=== PATIENT | female | born 1970 | race Caucasian/White ===

== ENCOUNTER 2021-03-27 14:01 | Inpatient (IN) | payer MEDICAID ==
[2021-03-27 15:18] LABS: CHLORIDE,CL 97 mEq/L (98-106); SODIUM,NA 136 mEq/L (136-145)
[2021-03-27] MEDS ORDERED: Ondansetron 4 MG/2 ML SDV IV PRN (17:15)
[2021-03-27] MEDS ORDERED: Sodium Chloride 0.9% 10 ML Syringe FLUSH PRN (17:15)
[2021-03-27] MEDS ORDERED: cefTRIAXone 1 GM Vial IVPUSH SCH (18:00)
[2021-03-27] MEDS: Sodium Chloride 0.9% 1,000 ML IV SCH (19:28)
[2021-03-27] MEDS ORDERED: Docusate Sodium 100 MG Cap PO PRN (20:00)
[2021-03-27] MEDS: Ibuprofen 200 MG Tab PO PRN (20:13)
[2021-03-27] MEDS: cefTRIAXone 1 GM Vial IVPUSH SCH (20:17)
[2021-03-27] MEDS: VANCOmycin 1 GM/200 ML 1 GM in Premix Bag 1 BAG IV SCH (20:36)
[2021-03-27] MEDS ORDERED: Temazepam 15 MG Cap PO PRN (20:41)
[2021-03-28] MEDS: Acetaminophen 325 MG Tab PO PRN ×3 (00:21→16:19)
[2021-03-28] MEDS: Sodium Chloride 0.9% 1,000 ML IV SCH (04:54)
[2021-03-28 07:27] LABS: CHLORIDE,CL 101 mEq/L (98-106); SODIUM,NA 136 mEq/L (136-145)
[2021-03-28] MEDS: Ibuprofen 200 MG Tab PO PRN ×3 (08:16→22:41)
[2021-03-28] MEDS: VANCOmycin 1 GM/200 ML 1 GM in Premix Bag 1 BAG IV SCH (08:21)
[2021-03-28] MEDS ORDERED: Iopamidol 755 Mg/ML 100 ML Bottle IVPUSH ONE (10:17)
[2021-03-28] MEDS: Azithromycin 500 MG in Sodium Chloride 0.9% 250 ML IV SCH (11:54)
[2021-03-28] MEDS: Enoxaparin 40 MG/0.4 ML Syringe SUBCUT SCH (11:57)
--- NOTE | 2021-03-28 12:55 | PN ---
DATE: 03/28/2021 S: Mrs. Sheth is a 50-year-old female who was admitted by Lobito yesterday for elevated white count and fevers. She came in with some URI-type symptoms and she had a pretty normal chest and face exam. She does have a recent lancing of a pilonidal cyst and there was a lot of drainage from this. There was some induration and redness around it. The patient really does not have a lot of pain in that area. She is having typical symptoms of high fever including fatigue and headache and lethargy. She was admitted yesterday, started on vancomycin and Rocephin. Blood cultures and wound cultures are pending. I do not believe a chest x-ray was done. She continues to run some fevers. She had a T-max this morning of 102.3. O: GENERAL: She is pleasant and cooperative. HEENT: Benign. NECK: Her neck veins are flat. LUNGS: Lung sounds appear to be clear. I do not hear any rales, rhonchi, or wheeze. CARDIAC: Tones are regular. ABDOMEN: Soft and nontender. EXTREMITIES: Lower extremities without edema. The cyst area over the sacrum shows about a 2 cm open wound with some iodoform in it. The drainage is nonpurulent and not foul-smelling. There is induration around it with minimal erythema at this time. LABORATORY DATA: White blood cell count is elevated at 16.5, it was 16.1 yesterday. CRP has went up slightly. ASSESSMENT: 1. FEVER. 2. COUGH. 3. RECENT PILONIDAL CYST REMOVAL. P: The patient clinically looks well. Her lactic acid was normal. Her CRP and white count are both elevated, but she was only admitted late yesterday afternoon. I am going to get a chest x-ray as well as a CT scan of the sacral area to make sure there is not an abscess and we will proceed accordingly. JAMES/EVELIA /[id number]
--- NOTE | 2021-03-28 13:28 | PN ---
DATE: 03/28/2021 Per the record, patient's chest x-ray shows diffuse infiltrate in the left lung. I did attempt to stop the CT scan of the pelvis, but it had already been accomplished. She will be taken off vancomycin and switched to Zithromax along with Rocephin and we will continue to monitor. JAMES/EVELIA /[id number]
[2021-03-28] MEDS: Albuterol/Ipratropium 3.0-0.5 MG/3 ML Neb Soln NEB SCH ×2 (15:01→19:39)
[2021-03-28] MEDS: cefTRIAXone 1 GM Vial IVPUSH SCH (19:39)
[2021-03-29 07:16] LABS: CHLORIDE,CL 102 mEq/L (98-106); SODIUM,NA 138 mEq/L (136-145)
[2021-03-29] MEDS: Albuterol/Ipratropium 3.0-0.5 MG/3 ML Neb Soln NEB SCH ×4 (07:32→19:36)
[2021-03-29] MEDS: Ibuprofen 200 MG Tab PO PRN ×2 (07:36→19:43)
[2021-03-29] MEDS ORDERED: Potassium Chloride Riders 40 MEQ in Premix Bag 1 BAG IV ONE (09:00)
[2021-03-29] MEDS ORDERED: Sodium Chloride 0.9% 100 ML IV ONE (09:15)
[2021-03-29] MEDS ORDERED: Sodium Chloride 0.9% 500 ML IV ONE (10:30)
[2021-03-29] MEDS: Enoxaparin 40 MG/0.4 ML Syringe SUBCUT SCH (11:47)
[2021-03-29] MEDS: Potassium Chloride 10 MEQ Tab.ER PO SCH (11:47)
--- NOTE | 2021-03-29 11:58 | PN ---
DATE: 03/29/2021 S: Mrs. Sheth yesterday had chest x-ray which showed bibasilar infiltrates very prominent on the left and diffuse, there is some on the right as well, consistent with an atypical pneumonia. Looks a lot like COVID, however we repeated a COVID test again this morning for the 2nd time and was negative. For the most part, actually she is up and ambulating. She has maintained her sats in the mid upper 90s on room air. We did switch from vancomycin to IV Zithromax to go along with her Rocephin. She has not spiked a temp since early yesterday evening and for the most part her vitals have been stable. She gets a little tachycardic after she takes her nebs. Blood cultures have been negative. We are yet to get a sputum. O: GENERAL: She is pleasant and cooperative. HEENT: Grossly benign. NECK: Supple. Veins are flat. LUNGS: Lung sounds again remain essentially clear. I do not hear any rales, rhonchi, or significant wheeze at this time. CARDIAC: Tones appear regular. ABDOMEN: Nontender. EXTREMITIES: She has no peripheral edema. LABORATORY DATA: Lab work is reviewed. Her white count is down. Her CRP remains elevated around 40 today and it has climbed slightly since admission. Her white blood cell count is down from 16 to 13.7. She has gotten hypokalemic with a potassium of 2.9. Renal function is otherwise normal. ASSESSMENT: 1. BILATERAL ATYPICAL PNEUMONIA. 2. HYPOKALEMIA. P: We did check a magnesium level, it was normal. We will give another 40 mEq of potassium IV and I will start her on an oral pill. Clinically, she looks fine. I would like to see her CRP just start to trend down, but all in all the patient does appear better and she is maintaining her vitals and sats just fine. Plan to follow up a chest x-ray tomorrow and repeat her lab. JAMES/EVELIA /[id number]
[2021-03-29] MEDS: guaiFENesin 200 MG Tab PO SCH ×2 (13:49→19:35)
[2021-03-29] MEDS: Azithromycin 500 MG in Sodium Chloride 0.9% 250 ML IV SCH (13:50)
[2021-03-29 15:05] LABS: CHLORIDE,CL 102 mEq/L (98-106); SODIUM,NA 138 mEq/L (136-145)
[2021-03-29] MEDS: cefTRIAXone 1 GM Vial IVPUSH SCH (19:35)
[2021-03-30 07:26] LABS: CHLORIDE,CL 103 mEq/L (98-106); SODIUM,NA 139 mEq/L (136-145)
[2021-03-30] MEDS: Potassium Chloride 10 MEQ Tab.ER PO SCH ×2 (07:41→17:38)
[2021-03-30] MEDS: guaiFENesin 200 MG Tab PO SCH ×3 (07:41→20:22)
[2021-03-30] MEDS: Albuterol/Ipratropium 3.0-0.5 MG/3 ML Neb Soln NEB SCH ×4 (07:42→20:22)
--- NOTE | 2021-03-30 10:50 | PN ---
DATE: 03/30/2021 S: Ms. Sheth had a really good day yesterday. She did not spike a temp now for over 24 hours. Her blood pressures have been fine. She is saturating at 95% on room air. She is still hypokalemic. She did get some IV and oral potassium replacement yesterday. We are going to need to give her another bump today as she remains down at 3.3. She denies any complaints of pain. She still feels short of breath and a little tight, but for the most part better. O: GENERAL: Her exam today shows her to be pleasant and cooperative. NECK: Once again, her neck veins are flat. LUNGS: Her lung sounds remain clear. I cannot auscultate any rales, rhonchi or wheeze. CARDIAC: Tones are regular. ABDOMEN: Soft. EXTREMITIES: No peripheral edema. Chest x-ray was repeated. She shows a slight improvement in the left lung. There continues to be diffuse hazy opacification and the right side looks stable as well. The lab work shows improvement of her white count down to 10.5. Her CRP is down from 40 yesterday to low 30s today, and potassium is improved at 3.3, but still slightly low. ASSESSMENT: 1. ATYPICAL PNEUMONIA, BILATERAL. 2. HYPOKALEMIA. P: The patient will be given another potassium bump today. Her magnesium level yesterday was normal. We are going to continue IV antibiotics for another day. If she continues to remain afebrile and vital signs are stable, we will discharge home tomorrow with outpatient antibiotics and nebulizer therapy. JAMES/EVELIA /[id number]
[2021-03-30] MEDS: Azithromycin 500 MG in Sodium Chloride 0.9% 250 ML IV SCH (11:39)
[2021-03-30] MEDS: Enoxaparin 40 MG/0.4 ML Syringe SUBCUT SCH (11:39)
[2021-03-30] MEDS ORDERED: Potassium Chloride Riders 40 MEQ in Premix Bag 1 BAG IV ONE (12:00)
[2021-03-30] MEDS ORDERED: Sodium Chloride 0.9% 500 ML IV ONE (13:30)
[2021-03-30] MEDS: cefTRIAXone 1 GM Vial IVPUSH SCH (20:22)
[2021-03-31 07:46] LABS: CHLORIDE,CL 104 mEq/L (98-106); SODIUM,NA 139 mEq/L (136-145)
[2021-03-31] MEDS: Albuterol/Ipratropium 3.0-0.5 MG/3 ML Neb Soln NEB SCH (07:52)
[2021-03-31] MEDS: Potassium Chloride 10 MEQ Tab.ER PO SCH (07:52)
[2021-03-31] MEDS: guaiFENesin 200 MG Tab PO SCH (07:52)
[2021-03-31] MEDS ORDERED: Azithromycin 500 MG in Sodium Chloride 0.9% 250 ML IV SCH (10:00)
[2021-03-31] MEDS ORDERED: cefTRIAXone 1 GM Vial IVPUSH SCH (11:00)
--- NOTE | 2021-04-04 11:36 | DISCH ---
ADMISSION DIAGNOSES: 1. Fever with cough. 2. Status post pilonidal cyst removal. DISCHARGE DIAGNOSIS: 1. BILATERAL PNEUMONIA. 2. HYPOKALEMIA, RESOLVED. 3. STATUS POST PILONIDAL CYST REMOVAL. HISTORY: The patient is a 50-year-old who was seen by Lobito Chi in the clinic for fever. She had a pilonidal cyst removed shortly before this visit and there was a concern about a possible infection as she was spiking temps up to 103. She did admit to a little bit of a cough. Lobito Chi evaluated her. I do not have that report, but nevertheless she was seen and ultimately put in the hospital on IV antibiotics. He felt she might have had a wound infection. At the time of her admission, her white count was elevated at 16,000. Her lactic acid was normal and she did have a CRP over 30. HOSPITAL COURSE: The day after admission, I did listen to her. Although her lungs were clear, we did do a chest x-ray which confirmed a bilateral pneumonia, fairly prominent opacifications on her left side, although her chest exam was fairly benign and she has never been hypoxic. Nevertheless, she was kept on Rocephin once we found the pneumonia. We took her off the vancomycin and put her on Zithromax IV as well. Over the course of the next 4 days, she has had an improvement in her white count. Her CRP is trending down, and for the most part, she is no longer spiking any temps over the last 48 hours. She is breathing well on room air. Sats are in the mid-to- high 90s. Did start her on some nebs as occasionally she got a little wheezy. For the most part, she has not had any further complaints of shortness of breath and overall she has been doing much better. At this time, she has finished 5 days of both Rocephin and Zithromax. We will put her on 5 more days of outpatient Ceftin and she will use p.r.n. nebulizer at home. In a week's time, she will have a followup clinic visit for repeat chest x-ray and lab. Her hypokalemia has been corrected with both IV and oral replacement and she will not go home on oral potassium. She is on no other medications that would cause potassium loss. COMPLICATIONS: During her stay were none. CONSULTATIONS: None. DISPOSITION: Discharged home. JAMES/EVELIA /[id number]
== END 2021-03-31 12:28 | disposition home or self-care (01) | DRG 195 ==
LOC: CC.MS 14:01 → CC.FCMC 14:01 → CC.MS 16:22 → UNDOADMOB 16:22 → CC.MS 17:15 → OBSVTOIN 03-30 09:46
PROVIDERS: ADMIT Physician Assistant Medical; ATTEND Family Medicine
DX: J18.9 Pneumonia, unspecified organism (principal); L72.9 Follicular cyst of the skin and subcutaneous tissue, unspecified; Z20.822 Contact with and (suspected) exposure to COVID-19; E87.6 Hypokalemia
CPT/HCPCS: 36415; 71046; 72193; 80048; 80053; 81001; 83605; 83735; 85025; 86140; 86308; 87040; 87070; 87430; 87804; 94640; 96365; 96366; 96367; 96372; 96375; 96376; A9270-GY; G0378; J0456; J0696; J1650; J3370; J3480; J7030; J7040; J7050; J7620-GY; Q9967; U0002

== ENCOUNTER 2025-04-24 11:06 | Emergency (ER) | payer SELFPAY ==
[2025-04-24] MEDS: methylPREDNISolone Sodium Succinate 125 MG/2 ML SDV IM ONE (11:19)
[2025-04-24 11:38] LABS: BASOPHILS ABSOLUTE AUTO 0.03 10^3/uL (0.00-0.50); BASOPHILS PERCENT AUTO 0.3 % (0-1); EOSINOPHILS ABSOLUTE AUTO 0.32 10^3/uL (0.00-1.50); EOSINOPHILS PERCENT AUTO 3.3 % (0-6); IMMATURE GRAN ABSOLUTE AUTO 0.02 10^3/uL (0.00-0.49); IMMATURE GRAN PERCENT AUTO 0.2 % (0.0-4.9); LYMPHOCYTES ABSOLUTE AUTO 1.83 10^3/uL (0.60-5.00); LYMPHOCYTES PERCENT AUTO 19.0 % (24-44); MONOCYTES ABSOLUTE AUTO 0.61 10^3/uL (0.00-1.50); MONOCYTES PERCENT AUTO 6.3 % (0-10); NEUTROPHILS ABSOLUTE AUTO 6.81 x10^3/uL (1.80-8.00); NEUTROPHILS PERCENT AUTO 70.9 % (41-71); PLATELET COUNT,PLT 259 10^3/uL (150-400); RED BLOOD CELL COUNT 4.70 x10^6/uL (4.00-5.50); WHITE BLOOD CELL COUNT,WBC 9.6 10^3/uL (4.0-11.0)
[2025-04-24 11:50] LABS: ALANINE AMINOTRANSFERASE,ALT 16.0 U/L (12-78); ASPARTATE AMNIOTRANSFERASE,AST 12.0 U/L (15-37); BILIRUBIN TOTAL 0.8 mg/dL (0.0-1.0); BLOOD UREA NITROGEN,BUN 8.0 mg/dL (7-18); CARBON DIOXIDE,CO2 27.0 mmol/L (21-32); CHLORIDE,CL 101.0 mEq/L (98-106); CREATININE 0.7 mg/dL (0.6-1.0); EST CRCL DRUG DOSING (CG) 93.76 mL/min; ESTIMATED GFR 103.0 mL/min (>=60); GLUCOSE RANDOM 120.0 mg/dL (75-99); POTASSIUM,K 3.4 mEq/L (3.5-5.0); PROTEIN TOTAL,TP 7.5 g/dL (6.4-8.2); SODIUM,NA 139.0 mEq/L (136-145)
[2025-04-24] MEDS: Take Home: Albuterol 0.083% 2.5 MG/3 ML Neb Soln, 5 Neb Pack NEB ONE (12:07)
[2025-04-24] MEDS: Take Home: Azithromycin 250 MG, 2 Tab Pack PO ONE (12:07)
[2025-04-24] MEDS: Take Home: predniSONE 20 MG, 4 Tab Pack PO ONE (12:07)
== END 2025-04-24 12:34 | disposition home or self-care (01) ==
LOC: CC.ED 11:06
DX: J20.9 Acute bronchitis, unspecified (principal); J06.9 Acute upper respiratory infection, unspecified; Z79.899 Other long term (current) drug therapy
CPT/HCPCS: 36415; 71046; 80053; 85025; 86140; 96372; 99283; 99285; A9270-GY; J2919